=== PATIENT | male | born 1990 | race Caucasian/White ===

== ENCOUNTER 2021-02-17 20:03 | Emergency (ER) | payer MEDICAID ==
--- NOTE | 2021-02-17 20:46 | EDM.PDOC ---
ED HPI GENERAL MEDICAL PROBLEM - General Stated Complaint: NO INSULIN/DIABETIC Time Seen by Provider: 02/17/21 20:25 Source of Information: Reports: Patient History Limitations: Reports: No Limitations - History of Present Illness INITIAL COMMENTS - FREE TEXT/NARRATIVE: Patient comes emergency department today from work with complaints of being out of his insulin for his type 1 diabetes and hyperglycemia. This patient is a type I diabetic who is on Lantus and NovoLog. He has not had his insulin since Saturday and he cannot get it refilled until the eighth he reports. He typically uses Basaglar 50 units twice daily and then a sliding scale of NovoLog. His blood sugar typically runs anywhere from 400-600. Today when he was at work he feels quite tired he does not have a lot of energy. He has had no nausea or vomiting. No abdominal pain. He does not think he is in ketosis as he has had it many times before. He does complain of malaise no fatigue arthralgias or myalgias. No dizziness lightheadedness. He is unable to get his insulin refilled until the eighth of this month. He also complains of right upper dental pain. He has been on Augmentin for an infected broken tooth for about the past 5 days. He still has the pain but the swelling and the induration is much improved he reports. No COVID symptoms no COVID exposure. Past medical history DM 1, Diabetic neuropathy, depression anxiety, methamphetamine abuse. ADHD and autism spectrum disorder. Right upper dental pain Pain Score (Numeric/FACES): 9 - Related Data Allergies Allergy/AdvReac Type Severity Reaction Status Date / Time No Known Allergies Allergy Verified 02/17/21 21:46 Home Meds: Home Meds Gabapentin [Neurontin] 300 mg PO TID 02/18/21 [History] Insulin Aspart [NovoLOG] See Protocol SQ TIDMEALS 02/18/21 [History] Insulin Glargine,Hum.Rec.Anlog [Lantus Solostar] 50 units SQ BID 02/18/21 [History] Methylphenidate HCl 20 mg PO BID 02/18/21 [History] ED ROS GENERAL - Review of Systems Review Of Systems: Comprehensive ROS is negative, except as noted in HPI. ED EXAM, GENERAL - Physical Exam Exam: See Below Exam Limited By: No Limitations General Appearance: Alert, WD/WN, No Apparent Distress, Thin Eye Exam: Bilateral Eye: EOMI, PERRL Ears: Normal External Exam Nose: Normal Inspection Throat/Mouth: No: Normal Inspection (Almost every tooth throughout the oral cavity has dental caries in it. Tooth #7 is broken off almost at the base of the tooth at the gum line. There is no sign of fluctuance swelling induration of the gums. There is no swelling of the face. There is resendiz gingivitis throughout the entire gum area. ), Normal Gums (There is redness throughout all of his gums throughout his oral cavity concerning for gingivitis. There is no more redness or swelling at the site of tooth #7. There is no drainage.) Head: Atraumatic, Normocephalic Neck: Normal Inspection, Supple, Non-Tender Respiratory/Chest: No Respiratory Distress, Lungs Clear, Normal Breath Sounds, No Accessory Muscle Use, Chest Non-Tender Cardiovascular: Normal Peripheral Pulses, Regular Rate, Rhythm Peripheral Pulses: 2+: Radial (L), Radial (R), Posterior Tibial (L), Posterior Tibial (R), Dorsalis Pedis (L), Dorsalis Pedis (R) GI/Abdominal: Normal Bowel Sounds, Soft, Non-Tender (Male) Exam: Deferred Rectal (Males) Exam: Deferred Back Exam: Normal Inspection, Full Range of Motion Extremities: Normal Inspection, Normal Range of Motion, No Pedal Edema, Normal Capillary Refill Neurological: Alert, Oriented, Normal Cognition, No Motor/Sensory Deficits Psychiatric: Normal Affect, Normal Mood Skin Exam: Warm, Dry, Intact, Normal Color, No Rash Course - Vital Signs Last Recorded V/S: Last Vital Signs Temp 97.7 F 02/17/21 20:03 Pulse 90 02/17/21 20:03 Resp 16 02/17/21 20:03 BP 138/72 02/17/21 20:03 Pulse Ox 97 02/17/21 20:03 - Orders/Labs/Meds Orders: Active Orders 24 hr Category Date Time Status B-HYDROXYBUTYRATE [REF] Stat Lab 02/17/21 20:53 Received Peripheral IV Insertion Adult [OM.PC] Stat Oth 02/17/21 21:57 Ordered Labs: Laboratory Tests 02/17/21 02/17/21 02/17/21 Range/Units 20:52 20:53 20:53 WBC 7.4 (4.0-10.0) x10^3/uL RBC 5.01 (4.5-6.0) x10^6/uL Hgb 15.9 (14.0-18.0) g/dL Hct 43.7 (40.0-52.0) % MCV 87.2 (78.0-93.0) fL MCH 31.7 (26.0-32.0) pg MCHC 36.4 H (32.0-36.0) g/dL RDW Coeff of Crista 12.0 (10.0-15.0) % Plt Count 245 (130-400) x10^3/uL Neut % (Auto) 64.2 (50.0-80.0) % Lymph % (Auto) 21.6 L (25.0-50.0) % Meeker % (Auto) 11.0 (2.0-11.0) % Eos % (Auto) 2.7 (0.0-4.0) % Baso % (Auto) 0.5 (0.2-1.2) % VBG pH 7.41 (7.33-7.43) pH VBG pCO2 39 L (41-51) mmHG VBG pO2 69 mmHG VBG HCO3 25 (22-29) mmol/L VBG O2 Saturation 94 % VBG Base Excess 0 ((-2)-3) mmol/L Sodium (136-145) mmol/L Potassium (3.5-5.1) mmol/L Chloride (98-107) mmol/L Carbon Dioxide (21-32) mmol/L Anion Gap (5-15) mmol/L BUN (7-18) mg/dL Creatinine (0.70-1.30) mg/dL Est Cr Clr Drug Dosing Estimated GFR (MDRD) Glucose (70-99) mg/dL POC Glucose > 503 H* (70-99) mg/dL Lactic Acid (0.4-2.0) mmol/L Calcium (8.5-10.1) mg/dL Urine Color (YELLOW) Urine Appearance (CLEAR) Urine pH (5.0-8.0) Ur Specific Ransom Urine Protein (NEGATIVE) mg/dL Urine Glucose (UA) (NEGATIVE) mg/dL Urine Ketones (NEGATIVE) mg/dL Urine Occult Blood (NEGATIVE) Urine Nitrite (NEGATIVE) Urine Bilirubin (NEGATIVE) Urine Urobilinogen (0.2) EU/dL Ur Leukocyte Esterase (NEGATIVE) Urine Opiates Screen (NEAGTIVE) Ur Buprenorphine Scrn (NEGATIVE) Ur Oxycodone Screen (NEGATIVE) Urine Methadone Screen (NEGATIVE) Ur Barbiturates Screen (NEGATIVE) Ur Phencyclidine Scrn (NEGATIVE) Ur Amphetamine Screen (NEGATIVE) U Methamphetamines Scrn (NEGATIVE) Urine MDMA Screen (NEGATIVE) U Benzodiazepines Scrn (NEGATIVE) U Cocaine Metab Screen (NEGATIVE) U Marijuana (THC) Screen (NEGATIVE) Ethyl Alcohol (0-3) mg/dL 02/17/21 02/17/21 02/17/21 Range/Units 20:53 20:53 20:53 WBC (4.0-10.0) x10^3/uL RBC (4.5-6.0) x10^6/uL Hgb (14.0-18.0) g/dL Hct (40.0-52.0) % MCV (78.0-93.0) fL MCH (26.0-32.0) pg MCHC (32.0-36.0) g/dL RDW Coeff of Crista (10.0-15.0) % Plt Count (130-400) x10^3/uL Neut % (Auto) (50.0-80.0) % Lymph % (Auto) (25.0-50.0) % Meeker % (Auto) (2.0-11.0) % Eos % (Auto) (0.0-4.0) % Baso % (Auto) (0.2-1.2) % VBG pH (7.33-7.43) pH VBG pCO2 (41-51) mmHG VBG pO2 mmHG VBG HCO3 (22-29) mmol/L VBG O2 Saturation % VBG Base Excess ((-2)-3) mmol/L Sodium 125 L* (136-145) mmol/L Potassium 4.0 (3.5-5.1) mmol/L Chloride 89 L (98-107) mmol/L Carbon Dioxide 26 (21-32) mmol/L Anion Gap 14.0 (5-15) mmol/L BUN 13 (7-18) mg/dL Creatinine 1.0 (0.70-1.30) mg/dL Est Cr Clr Drug Dosing TNP Estimated GFR (MDRD) > 60 Glucose 952 H* (70-99) mg/dL POC Glucose (70-99) mg/dL Lactic Acid 1.3 (0.4-2.0) mmol/L Calcium 8.5 (8.5-10.1) mg/dL Urine Color (YELLOW) Urine Appearance (CLEAR) Urine pH (5.0-8.0) Ur Specific Ransom Urine Protein (NEGATIVE) mg/dL Urine Glucose (UA) (NEGATIVE) mg/dL Urine Ketones (NEGATIVE) mg/dL Urine Occult Blood (NEGATIVE) Urine Nitrite (NEGATIVE) Urine Bilirubin (NEGATIVE) Urine Urobilinogen (0.2) EU/dL Ur Leukocyte Esterase (NEGATIVE) Urine Opiates Screen (NEAGTIVE) Ur Buprenorphine Scrn (NEGATIVE) Ur Oxycodone Screen (NEGATIVE) Urine Methadone Screen (NEGATIVE) Ur Barbiturates Screen (NEGATIVE) Ur Phencyclidine Scrn (NEGATIVE) Ur Amphetamine Screen (NEGATIVE) U Methamphetamines Scrn (NEGATIVE) Urine MDMA Screen (NEGATIVE) U Benzodiazepines Scrn (NEGATIVE) U Cocaine Metab Screen (NEGATIVE) U Marijuana (THC) Screen (NEGATIVE) Ethyl Alcohol < 3 (0-3) mg/dL 02/17/21 02/17/21 02/18/21 Range/Units 21:46 21:46 00:06 WBC (4.0-10.0) x10^3/uL RBC (4.5-6.0) x10^6/uL Hgb (14.0-18.0) g/dL Hct (40.0-52.0) % MCV (78.0-93.0) fL MCH (26.0-32.0) pg MCHC (32.0-36.0) g/dL RDW Coeff of Crista (10.0-15.0) % Plt Count (130-400) x10^3/uL Neut % (Auto) (50.0-80.0) % Lymph % (Auto) (25.0-50.0) % Meeker % (Auto) (2.0-11.0) % Eos % (Auto) (0.0-4.0) % Baso % (Auto) (0.2-1.2) % VBG pH (7.33-7.43) pH VBG pCO2 (41-51) mmHG VBG pO2 mmHG VBG HCO3 (22-29) mmol/L VBG O2 Saturation % VBG Base Excess ((-2)-3) mmol/L Sodium 133 L (136-145) mmol/L Potassium 3.7 (3.5-5.1) mmol/L Chloride 97 L (98-107) mmol/L Carbon Dioxide 25 (21-32) mmol/L Anion Gap 14.7 (5-15) mmol/L BUN 11 (7-18) mg/dL Creatinine 0.9 (0.70-1.30) mg/dL Est Cr Clr Drug Dosing 130.53 Estimated GFR (MDRD) > 60 Glucose 645 H* (70-99) mg/dL POC Glucose (70-99) mg/dL Lactic Acid (0.4-2.0) mmol/L Calcium 7.8 L (8.5-10.1) mg/dL Urine Color Yellow (YELLOW) Urine Appearance Clear (CLEAR) Urine pH 6.0 (5.0-8.0) Ur Specific Ransom 1.010 Urine Protein Negative (NEGATIVE) mg/dL Urine Glucose (UA) 500 H (NEGATIVE) mg/dL Urine Ketones Negative (NEGATIVE) mg/dL Urine Occult Blood Negative (NEGATIVE) Urine Nitrite Negative (NEGATIVE) Urine Bilirubin Negative (NEGATIVE) Urine Urobilinogen 0.2 (0.2) EU/dL Ur Leukocyte Esterase Negative (NEGATIVE) Urine Opiates Screen Negative (NEAGTIVE) Ur Buprenorphine Scrn Negative (NEGATIVE) Ur Oxycodone Screen Negative (NEGATIVE) Urine Methadone Screen Negative (NEGATIVE) Ur Barbiturates Screen Negative (NEGATIVE) Ur Phencyclidine Scrn Negative (NEGATIVE) Ur Amphetamine Screen Negative (NEGATIVE) U Methamphetamines Scrn Negative (NEGATIVE) Urine MDMA Screen Negative (NEGATIVE) U Benzodiazepines Scrn Negative (NEGATIVE) U Cocaine Metab Screen Negative (NEGATIVE) U Marijuana (THC) Screen Negative (NEGATIVE) Ethyl Alcohol (0-3) mg/dL Meds: Medications Discontinued Medications Generic Name Dose Route Start Last Admin Trade Name Freq PRN Reason Stop Dose Admin Dextrose/Water 50 ml 02/17/21 22:02 50% Dextrose In Water 50 Ml Syringe IVPUSH ASDIRECTED PRN Hypoglycemia Glucagon 1 mg 02/17/21 22:02 Glucagon,Human Recombinant 1 Mg Vial IM ASDIRECTED PRN Hypoglycemia Sodium Chloride 1,000 mls @ 999 mls/hr 02/17/21 22:02 02/17/21 22:05 Normal Saline IV 02/17/21 23:02 999 mls/hr ONETIME ONE Administration Sodium Chloride 1,000 mls @ 999 mls/hr 02/17/21 23:13 02/17/21 23:20 Normal Saline IV 02/18/21 00:13 999 mls/hr ONETIME ONE Administration Insulin Glargine 60 unit 02/17/21 22:02 02/17/21 22:20 Insulin Glarg,Human.Rec.Analog 100 Unit/Ml SUBCUT 02/17/21 22:03 60 units NOW STA Administration Insulin Human Regular 15 unit 02/17/21 22:02 02/17/21 22:16 Insulin Regular, Human 100 Units/Ml 3 Ml Vial SUBCUT 02/17/21 22:03 15 units NOW STA Administration Potassium Chloride 20 meq 02/17/21 22:06 02/17/21 22:30 Potassium Chloride 20 Meq Tab.Er PO 02/17/21 22:07 20 meq ONETIME ONE Administration Potassium Chloride 40 meq 02/17/21 22:06 02/17/21 22:30 Potassium Chloride 10% 20 Meq/15 Ml Soln 15 Ml Ud Cup PO 02/17/21 22:07 40 meq ONETIME ONE Administration Potassium Chloride 40 meq 02/18/21 00:38 02/18/21 00:55 Potassium Chloride 10% 20 Meq/15 Ml Soln 15 Ml Ud Cup PO 02/18/21 00:39 40 meq ONETIME ONE Administration Sodium Chloride 10 ml 02/17/21 22:02 Sodium Chloride 0.9% 10 Ml Syringe FLUSH ASDIRECTED PRN Keep Vein Open - Re-Assessments/Exams Free Text/Narrative Re-Assessment/Exam: 02/17/21 20:47 I did review the patient's chart in [facility] and typically his hemoglobin A1c is 14 or greater IV was established labs are drawn. 1 L normal saline wide open. Laboratory evaluation with a rather normal CBC. Venous blood gas with a pH of 7.41, PCO2 39, bicarb 25, base excess 0. I see no signs of acidosis concerning for diabetic ketosis CMP with a sodium of 125, although the glucose is 952 and the corrected sodium would be 139. Got normal kidney function with a creatinine 1.0 and a BUN of 13, lactic acid 1.3. The patient was given 15 units of regular insulin subcutaneously as well as 60 units of Lantus subcutaneously. Urinalysis is positive for glucose negative for ketones no infectious process. The patient was given a second liter of normal saline in the emergency department. He was also given a meal tray as he was very hungry. After the initial blood draw hours blood sugar was 952 and the above therapy 3 hours later at midnight his blood sugar had improved nicely and slowly down to 645. This is even with him eating. Has had no signs of diabetic ketoacidosis on his initial presentation and his blood sugar is about to where he typically has it at home which she relates is anywhere from 4-600 I feel that is appropriate to discharge him at this time. I will give him the prescriptions that he can refill his insulin right away in the morning. He is able to get to the pharmacy in the morning and will get his insulin refilled. He has not seen a ems educator he relates for about 7 to 8 months although I think he should see 1 again as he clearly does not understand how to manage his blood sugars as he does not correct for his blood sugars only for what he is eating with carbs. He relates that he did have an insulin pump in the past and his blood sugars were well controlled although he is unsure why he is unable to have a pump at this time. 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 Discharge directions as below are explained to the patient is comfortable with this plan. I explained to him the importance of returning if he has any signs of diabetic ketoacidosis. I also discussed how he can check his urine at home for ketones as well. This patient really needs to take control of his diabetes with his hemoglobin A1c over 14 for many years he is going to have some very severe chronic sequelae of poor control diabetes. He is understanding this and his questions are answered. Departure - Departure Time of Disposition: 00:37 Disposition: Home, Self-Care 01 Clinical Impression: Hyperglycemia, Poor compliance with medication Type 1 diabetes mellitus Qualifiers: Diabetes mellitus complication status: with hyperglycemia Qualified Code(s): E10.65 - Type 1 diabetes mellitus with hyperglycemia - Discharge Information Instructions: Hyperglycemia, [id number], Type 1 Diabetes Mellitus, Self Care, Adult, [id number] Referrals: Kaci Portillo [facility]ER [Primary Care Provider] - Forms: ED Department Discharge Additional Instructions: Drink plenty of fluids over the next few days. Go to the pharmacy right away in the morning and get your Basaglar as well as your Novolog and start right away in the morning. You have to check you blood sugars with every meals and correct with your Novolog not just what carbs you are eating but your elevated blood sugar as well to get to a goal of eventually blood sugars of 100. You want to bring these down slowly over the next 3-5 so that your body can adjust to the better controlled blood sugars. Contact your PCP on saturday for recheck early next week for labs as well as further education for the management of your blood sugars. Eat a banana a day to help with your potassium as well. We have supplement it today in the ED and will send home some Potassium 1 tablet daily for the next 5 days until you see your PCP. RX given to the patient as well as for the Insulin above. You should also see a ems educator as well to better understand your management strategy for your Diabetes. Return to the ED if new or worsening symptoms especially nausea vomiting weakness abd pain or other signs of Diabetic Ketoacidosis like you have had in the past. See your PCP next week early in the week for recheck. - My Orders Last 24 Hours: My Active Orders 02/17/21 20:53 B-HYDROXYBUTYRATE [REF] Stat 02/17/21 21:57 Peripheral IV Insertion Adult [OM.PC] Stat - Assessment/Plan Last 24 Hours: My Active Orders 02/17/21 20:53 B-HYDROXYBUTYRATE [REF] Stat 02/17/21 21:57 Peripheral IV Insertion Adult [OM.PC] Stat
[2021-02-17 21:10] LABS: PCO2 VENOUS 39 mmHG (41-51); PH,VENOUS 7.41 pH (7.33-7.43); PO2 VENOUS 69 mmHG
[2021-02-17 21:11] LABS: BASE EXCESS VENOUS 0 mmol/L ((-2)-3); BICARBONATE,VENOUS 25 mmol/L (22-29); O2 SATURATION VENOUS 94 %
[2021-02-17 21:27] LABS: CHLORIDE,CL 89 mmol/L (98-107)
[2021-02-17 21:33] LABS: SODIUM,NA 125 mmol/L (136-145)
[2021-02-17 22:01] LABS: BARBITURATE SCREEN,URINE NEGATIVE (NEGATIVE); BENZODIAZEPINES SCREEN,URINE NEGATIVE (NEGATIVE); METHAMPHETAMINE SCREEN, URINE NEGATIVE (NEGATIVE); THC SCREEN,URINE 50 NG/ML NEGATIVE (NEGATIVE)
[2021-02-17] MEDS ORDERED: 50% Dextrose in Water 50 ML Syringe IVPUSH PRN (22:02)
[2021-02-17] MEDS ORDERED: Sodium Chloride 0.9% 10 ML Syringe FLUSH PRN (22:02)
[2021-02-17] MEDS ORDERED: Glucagon,Human Recombinant 1 MG Vial IM PRN (22:02)
[2021-02-17] MEDS: Sodium Chloride 0.9% 1,000 ML IV ONE ×2 (22:05→23:20)
[2021-02-17] MEDS: Insulin Regular, Human 100 Units/ML 3 ML Vial SUBCUT STA (22:16)
[2021-02-17] MEDS: Insulin Glarg,Human.Rec.Analog 100 Unit/ML SUBCUT STA (22:20)
[2021-02-17] MEDS: Potassium Chloride 10% 20 MEQ/15 ML Soln 15 ML UD Cup PO ONE (22:30)
[2021-02-17] MEDS: Potassium Chloride 20 MEQ Tab.ER PO ONE (22:30)
[2021-02-18 00:29] LABS: CHLORIDE,CL 97 mmol/L (98-107); SODIUM,NA 133 mmol/L (136-145)
[2021-02-18 00:31] LABS: ANION GAP 14.7 mmol/L (5-15)
[2021-02-18] MEDS: Potassium Chloride 10% 20 MEQ/15 ML Soln 15 ML UD Cup PO ONE (00:55)
== END 2021-02-18 00:58 | disposition home or self-care (01) ==
LOC: VM.ED 20:03
DX: E10.65 Type 1 diabetes mellitus with hyperglycemia (principal); Z79.899 Other long term (current) drug therapy; Z91.14 Patient's other noncompliance with medication regimen
CPT/HCPCS: 36415; 80048; 80305-QW; 80307; 81003; 82010; 82803; 82947; 83605; 85025; 99284; A9270-GY; J1815-GY; J7030